=== PATIENT | male | born 1990 | race Caucasian/White ===

== ENCOUNTER 2020-02-25 17:23 | Emergency (ER) | payer OTHER ==
[2020-02-25 17:36] VITALS: RESP 18
--- NOTE | 2020-02-25 18:15 | ED ---
General Adult HPI - General Source: patient, family, RN notes reviewed, old records reviewed Mode of arrival: ambulatory Limitations: no limitations <Tomas Dahl - Last Filed: 02/25/20 21:09> <Shay Spencer - Last Filed: 02/26/20 02:51> - General Chief complaint: Psychiatric Symptoms Stated complaint: Mental Health Time Seen by Provider: 02/25/20 17:30 - History of Present Illness Initial comments: This is a 29-year-old male whose on disability for Asperger's disease. Patient comes in today because she's been hearing voices. Patient states he also has been having this sensation that he has to repeat touching things twice so that he doesn't have extremely bad luck and doesn't make the voices come back of his head. Mom states he is not one to cry but this morning he was so upset about the voices he was crying. Patient denies any visual disturbances. Patient denies any drug use or alcohol use. Patient denies any suicidal homicidal ideations. Patient denies any physical complaints. (Tomas Dahl) - Related Data Allergies Allergy/AdvReac Type Severity Reaction Status Date / Time No Known Allergies Allergy Verified 02/25/20 22:03 Review of Systems ROS Other: All systems not noted in ROS Statement are negative. <Tomas Dahl - Last Filed: 02/25/20 21:09> ROS Other: All systems not noted in ROS Statement are negative. <Shay Spencer - Last Filed: 02/26/20 02:51> ROS Statement: Those systems with pertinent positive or pertinent negative responses have been documented in the HPI. Past Medical History Past Medical History: No Reported History History of Any Multi-Drug Resistant Organisms: None Reported Past Surgical History: No Surgical Hx Reported Past Psychological History: Unable to Obtain Smoking Status: Never smoker Past Alcohol Use History: None Reported Past Drug Use History: None Reported <Tomas Dahl - Last Filed: 02/25/20 21:09> General Exam Limitations: no limitations <Tomas Dahl - Last Filed: 02/25/20 21:09> - General Exam Comments Initial Comments: GENERAL: Patient is well-developed and well-nourished. Patient is nontoxic and well- hydrated and is in mild distress. ENT: Neck is soft and supple. No significant lymphadenopathy is noted. Oropharynx is clear. Moist mucous membranes. Neck has full range of motion without eliciting any pain. EYES: The sclera were anicteric and conjunctiva were pink and moist. Extraocular movements were intact and pupils were equal round and reactive to light. Eyelids were unremarkable. PULMONARY: Unlabored respirations. Good breath sounds bilaterally. No audible rales rhonchi or wheezing was noted. CARDIOVASCULAR: There is a regular rate and rhythm without any murmurs gallops or rubs. ABDOMEN: Soft and nontender with normal bowel sounds. SKIN: Skin is clear with no lesions or rashes and otherwise unremarkable. NEUROLOGIC: Patient is alert and oriented x3. Cranial nerves II through XII are grossly intact. Motor and sensory are also intact. Normal speech, volume and content. Symmetrical smile. MUSCULOSKELETAL: Normal extremities with adequate strength and full range of motion. LYMPHATICS: No significant lymphadenopathy is noted PSYCHIATRIC: Normal psychiatric evaluation. (Tomas Dahl) Course Vital Signs 02/25/20 17:31 Temperature 99.5 F Pulse Rate 101 H Respiratory 18 Rate Blood Pressure 144/78 O2 Sat by Pulse 98 Oximetry Medical Decision Making <Tomas Dahl - Last Filed: 02/25/20 21:09> - Medical Decision Making this patient's care will be taking over Dr. Null at 9 PM (Tomas Dahl) - Lab Data Lab Results 02/25/20 Range/Units 18:15 Urine Opiates Screen Not Detected (NotDetected) Ur Oxycodone Screen Not Detected (NotDetected) Urine Methadone Screen Not Detected (NotDetected) Ur Propoxyphene Screen Not Detected (NotDetected) Ur Barbiturates Screen Not Detected (NotDetected) U Tricyclic Antidepress Not Detected (NotDetected) Ur Phencyclidine Scrn Not Detected (NotDetected) Ur Amphetamines Screen Not Detected (NotDetected) U Methamphetamines Scrn Not Detected (NotDetected) U Benzodiazepines Scrn Not Detected (NotDetected) Urine Cocaine Screen Not Detected (NotDetected) U Marijuana (THC) Screen Not Detected (NotDetected) Disposition <Tomas Dahl - Last Filed: 02/25/20 21:09> Is patient prescribed a controlled substance at d/c from ED?: No <Shay Spencer - Last Filed: 02/26/20 02:51> Clinical Impression: Asperger syndrome Disposition: HOME SELF-CARE Condition: Good Instructions (If sedation given, give patient instructions): Asperger Syndrome (DC) Referrals: None,Stated [Primary Care Provider] - 1-2 days
[2020-02-25 18:54] LABS: Amphetamine Screen,Urine Not Detected (NotDetected); Barbiturate Screen,Urine Not Detected (NotDetected); Benzodiazepines Screen,Urine Not Detected (NotDetected); Cocaine Screen,Urine Not Detected (NotDetected); Methadone Screen, Urine Not Detected (NotDetected); Opiate Screen,Urine Not Detected (NotDetected); Oxycodone Screen, Urine Not Detected (NotDetected); Phencyclidine Screen,Urine Not Detected (NotDetected); Tricyclic Antidepressant,Urine Not Detected (NotDetected); Urn Cannabinoid Scrn Not Detected (NotDetected)
[2020-02-26 03:02] VITALS: BP 144/76; PULSE 89; TEMP 98.3
== END 2020-02-26 03:02 | disposition home or self-care (01) ==
LOC: EC 17:23
DX: F84.5 Asperger's syndrome (principal)
CPT/HCPCS: 80306; 99285